=== PATIENT | male | born 1995 | race Caucasian/White ===

== ENCOUNTER 2019-02-01 20:47 | Observation (INO) | payer SELFPAY ==
[2019-02-01 21:55] LABS: BASO % 0.3 % (0.0-2.0); EOS # 0.1 K/uL (0.0-0.7); EOS % 1.1 % (0.0-4.0); HEMOGLOBIN 15.5 g/dL (12.0-18.0); LYMPH # 3.6 K/uL (1.0-4.3); LYMPH % 41.9 % (20.0-40.0); MEAN CELL VOLUME 88.2 fL (80.0-94.0); MEAN CORPUSCULAR HGB CONC 34.1 g/dL (33.0-37.0); MEAN PLATELET VOLUME 7.1 fL (7.2-11.7); MONO # 0.9 K/uL (0.0-0.8); MONO % 10.1 % (0.0-10.0); NEUT % 46.6 % (50.0-75.0); RBC 5.15 Mil/uL (4.40-5.90); RED CELL DISTRIBUTION WIDTH 13.1 % (11.5-14.5); WHITE BLOOD COUNT 8.5 K/uL (4.8-10.8)
[2019-02-01] MEDS ORDERED: Sodium Chloride 0.9% 1,000 ML IV ONE (22:10)
--- NOTE | 2019-02-01 22:10 | C.PDOC ---
History Of Present Illness Patient presents to the ED c/o abdominal pain associated with nausea and vomiting that started at work today. Patient reports some small streaks of blood in his vomit earlier. Patient denies fever, chills, diarrhea, CP, SOB, alcohol intake, weakness, numbness. Time Seen by Provider: 02/01/19 22:02 Chief Complaint (Nursing): Abdominal Pain History Per: Patient History/Exam Limitations: no limitations Onset/Duration Of Symptoms: Hrs Current Symptoms Are (Timing): Still Present Context: Other Severity: Severe Pain Scale Rating Of: 6 Location Of Pain/Discomfort: RLQ, Epigastric Radiation Of Pain To:: None Quality Of Discomfort: Sharp, Stabbing Associated Symptoms: Nausea, Vomiting. denies: Diarrhea, Urinary Symptoms Alleviating Factors: None Last Bowel Movement: Today Recent travel outside of the [place]: No Additional History Per: Patient Past Medical History Reviewed: Historical Data, Nursing Documentation, Vital Signs Vital Signs: Last Vital Signs Temp 98.4 F 02/01/19 20:50 Pulse 67 02/01/19 20:50 Resp 18 02/01/19 20:50 BP 127/81 02/01/19 20:50 Pulse Ox 100 02/01/19 20:50 - Medical History PMH: No Chronic Diseases Surgical History: No Surg Hx Family History: States: Unknown Family Hx - Social History Hx Tobacco Use: No Hx Alcohol Use: No Hx Substance Use: No - Immunization History Hx Tetanus Toxoid Vaccination: No Hx Influenza Vaccination: No Hx Pneumococcal Vaccination: No Review Of Systems Constitutional: Negative for: Fever, Chills Cardiovascular: Negative for: Chest Pain Respiratory: Negative for: Shortness of Breath Gastrointestinal: Positive for: Nausea, Vomiting, Abdominal Pain. Negative for: Constipation Musculoskeletal: Negative for: Back Pain Skin: Negative for: Rash Neurological: Negative for: Weakness, Numbness, Headache Psych: Negative for: Anxiety Physical Exam - Physical Exam Appears: Non-toxic, No Acute Distress Skin: Warm, Dry Head: Normacephalic Eye(s): bilateral: Normal Inspection Oral Mucosa: Moist Neck: Supple Chest: Symmetrical Cardiovascular: Rhythm Regular Respiratory: No Rales, No Rhonchi, No Wheezing Gastrointestinal/Abdominal: Soft, Tenderness (mid epigastric/RLQ), No Distention, No Guarding, No Rebound Back: No CVA Tenderness Male Genital: No Inguinal Tenderness Extremity: Normal ROM Extremity: Bilateral: Atraumatic, Normal Color And Temperature, Normal ROM Pulses: Left Dorsalis Pedis: Normal, Right Dorsalis Pedis: Normal Neurological/Psych: Oriented x3, Normal Speech, Normal Cognition Gait: Steady ED Course And Treatment - Laboratory Results Result Diagrams: 02/01/19 21:51 02/01/19 21:51 O2 Sat by Pulse Oximetry: 100 (ON RA) Pulse Ox Interpretation: Normal - CT Scan/US CT abd/pelvis Other Rad Studies (CT/US): Read By Radiologist, Radiology Report Reviewed CT/US Interpretation: CT of the abdomen and pelvis with contrast. Clinical statement: Pain. Technique: Multiple axial CT images were obtained from the base of the lungs through the floor of the pelvis utilizing 5 mm axial slices after administration of nonionic intravenous contrast. Coronal and sagittal reconstructions were also obtained. Comparison: None. Findings: Chest: The visualized lung bases are clear. Abdomen: The liver, spleen, pancreas, kidneys, gallbladder, and adrenal glands are unremarkable. The aorta is within normal limits. There is no evidence of abdominal lymphadenopathy or ascites. Pelvis: The appendix is significantly dilated with fluid measuring up to 18 mm in diameter. There is an appendicolith in the proximal appendix measuring up to 10 mm with mild surrounding appendiceal wall thickening. No surrounding inflammation is seen. The remainder of the bowel is unremarkable. The urinary bladder is within normal limits. The other pelvic structures appear grossly intact. There is no evidence of pelvic lymphadenopathy or ascites. Bones: There are no suspicious osseous abnormalities seen. Impression: 1. Dilated, slightly thickened appendix containing a proximal appendicolith with mild surrounding appendiceal wall thickening. The findings are suspicious for early acute appendicitis. No surrounding mesenteric inflammation or fluid is seen. There is no evidence of abscess or perforation at this time. 2. The remainder of the bowel is unremarkable. . Electronically signed on Feb 02, 2019 12:40:03 AM EDT by: Eleni Moody M.D., Certified by [facility], MSK, Neuroradiology Progress Note: Plan: - Labs. - Morphine 2 mg IVP. - Protonix 40 mg IVP. - IV fluids. - Zofran 4 mg IVP. - UA Disposition Discussed With : Rahat Becerra Comment: accepted the pt on his servie and took over the care at 12:48 AM Doctor Will See Patient In The: ED Counseled Patient/Family Regarding: Studies Performed, Diagnosis - Disposition Disposition: HOSPITALIZED Disposition Time: 22:10 Condition: FAIR Forms: [facility] (Jordanian) - Clinical Impression Clinical Impression: Abdominal pain, Acute appendicitis - Scribe Statement The provider has reviewed the documentation as recorded by the Scribe Mo Avelar All medical record entries made by the Scribe were at my direction and personally dictated by me. I have reviewed the chart and agree that the record accurately reflects my personal performance of the history, physical exam, medical decision making, and the department course for this patient. I have also personally directed, reviewed, and agree with the discharge instructions and disposition. Decision To Admit - Pt Status Changed To: Hospital Disposition Of: Observation - . Bed Request Type: Regular Admitting Physician: Rahat Becerra Patient Diagnosis: Abdominal pain, Acute appendicitis
[2019-02-01 22:11] LABS: ALB/GLOB RATIO 1.6 (1.0-2.1); ALBUMIN 4.5 g/dL (3.5-5.0); ALT/SGPT 50 U/L (21-72); AST/SGOT 48 U/L (17-59); BLOOD UREA NITROGEN 13 mg/dL (9-20); GFR NON-AFRICAN AMERICAN > 60
[2019-02-01 22:33] LABS: INR 1.1; PROTHROMBIN TIME 12.1 SECONDS (9.7-12.2)
[2019-02-01] MEDS ORDERED: Iodixanol 320 MG/ML 100 ML BOTTLE IV ONE (23:18)
[2019-02-02] MEDS ORDERED: Piperacillin/Tazobact 3.375 gm 100 ML IVPB STA (00:47)
[2019-02-02] MEDS ORDERED: Piperacillin/Tazobact 3.375 gm 100 ML IVPB ONE (00:54)
--- NOTE | 2019-02-02 02:47 | CP.PCM.HP ---
History of Present Illness - History of Present Illness History of Present Illness: General Surgery H&P for Dr. Becerra cc: abdominal pain 23M who denies any significant PMH presents to [facility] for complaint of abdominal pain. Patient was seen and evaluated in the ED. Patient states that pain began earlier in the day yesterday after lunch time. Patient reports pain began superior to periumbilical region the moved to lower abdomen and RLQ. He had two episodes of nausea/vomiting at home with NBNB emesis. He never experienced pain like this before. Nothing specifically aggravates or alleviates his symptoms. Admits to anorexia. Denies fever/chills, cp, SOB, diarrhea, constipation, incontinence, urinary symptoms. PMH: denies PSH: denies ALL: denies FH: denies Social: denies vices Present on Admission - Present on Admission Any Indicators Present on Admission: No History of DVT/PE: No History of Uncontrolled Diabetes: No Urinary Catheter: No Decubitus Ulcer Present: No Review of Systems - Review of Systems All systems: reviewed and no additional remarkable complaints except (as per HPI) Past Patient History - Past Social History Smoking Status: Light Smoker < 10 Cigarettes Daily - PSYCHIATRIC Hx Substance Use: No - SURGICAL HISTORY Hx Surgeries: No - ANESTHESIA Hx Anesthesia: No Meds Allergies/Adverse Reactions: Allergies Allergy/AdvReac Type Severity Reaction Status Date / Time No Known Allergies Allergy Verified 02/01/19 20:53 Physical Exam - Constitutional Appears: No Acute Distress - Head Exam Head Exam: ATRAUMATIC, NORMOCEPHALIC - Eye Exam Eye Exam: EOMI, Normal appearance Pupil Exam: PERRL - ENT Exam ENT Exam: Mucous Membranes Moist - Respiratory Exam Respiratory Exam: NORMAL BREATHING PATTERN - Cardiovascular Exam Cardiovascular Exam: REGULAR RHYTHM - GI/Abdominal Exam GI & Abdominal Exam: Distended (mild), Normal Bowel Sounds, Soft, Tenderness (RLQ/periumbilical). absent: Firm, Guarding, Hernia, Rebound, Rigid Additional comments: +McBurney's,+Rovsing - Rectal Exam Rectal Exam: Deferred - Extremities Exam Extremities exam: Positive for: normal capillary refill, pedal pulses present. Negative for: calf tenderness - Back Exam Back exam: absent: CVA tenderness (L), CVA tenderness (R) - Neurological Exam Neurological exam: Alert, CN II-XII Intact, Oriented x3 - Psychiatric Exam Psychiatric exam: Normal Affect, Normal Mood - Skin Skin Exam: Dry, Intact, Warm Results - Vital Signs Recent Vital Signs: Last Vital Signs Temp 98.8 F 02/02/19 02:23 Pulse 81 02/02/19 02:23 Resp 19 02/02/19 02:23 BP 124/75 02/02/19 02:23 Pulse Ox 98 02/02/19 02:23 - Labs Result Diagrams: 02/01/19 21:51 02/01/19 21:51 Labs: Laboratory Results - last 24 hr 02/01/19 02/01/19 02/01/19 21:51 21:51 22:20 WBC 8.5 RBC 5.15 Hgb 15.5 Hct 45.4 MCV 88.2 MCH 30.0 MCHC 34.1 RDW 13.1 Plt Count 306 MPV 7.1 L Neut % (Auto) 46.6 L Lymph % (Auto) 41.9 H [place] % (Auto) 10.1 H Eos % (Auto) 1.1 Baso % (Auto) 0.3 Neut # (Auto) 4.0 Lymph # (Auto) 3.6 [place] # (Auto) 0.9 H Eos # (Auto) 0.1 Baso # (Auto) 0.0 PT 12.1 INR 1.1 APTT 38 H Sodium 139 Potassium 3.9 Chloride 103 Carbon Dioxide 26 Anion Gap 13 BUN 13 Creatinine 0.9 Est GFR ( Amer) > 60 Est GFR (Non-Af Amer) > 60 Random Glucose 91 Calcium 9.0 Total Bilirubin 0.4 AST 48 ALT 50 Alkaline Phosphatase 81 Total Protein 7.3 Albumin 4.5 Globulin 2.8 Albumin/Globulin Ratio 1.6 Lipase 02/01/19 22:21 WBC RBC Hgb Hct MCV MCH MCHC RDW Plt Count MPV Neut % (Auto) Lymph % (Auto) [place] % (Auto) Eos % (Auto) Baso % (Auto) Neut # (Auto) Lymph # (Auto) [place] # (Auto) Eos # (Auto) Baso # (Auto) PT INR APTT Sodium Potassium Chloride Carbon Dioxide Anion Gap BUN Creatinine Est GFR ( Amer) Est GFR (Non-Af Amer) Random Glucose Calcium Total Bilirubin AST ALT Alkaline Phosphatase Total Protein Albumin Globulin Albumin/Globulin Ratio Lipase 64 Assessment & Plan - Assessment and Plan (Free Text) Assessment: 23M with acute appendicitis Plan: -NPO -IVF -IV abx -Pain control -Anti-emtics PRN -Plan for OR 02/02 -Further recommendations as per Dr. Mariam Phillips PGY2 - Date & Time Date: 02/02/19 Time: 02:50
[2019-02-02] MEDS ORDERED: Lactated Ringer's 500 ML IV ONE (05:53)
[2019-02-02] MEDS ORDERED: Lactated Ringer's 1,000 ML IV ONE (05:55)
[2019-02-02] MEDS ORDERED: Piperacill/Tazo 3.375gm in Dex 3.375 GM/50 ML BAG IVPB SCH (06:00)
[2019-02-02] MEDS: Lactated Ringer's 1,000 ML IV SCH ×3 (07:15→23:14)
[2019-02-02 07:20] LABS: ALB/GLOB RATIO 1.6 (1.0-2.1); ALBUMIN 4.4 g/dL (3.5-5.0); ALT/SGPT 50 U/L (21-72); AST/SGOT 44 U/L (17-59); BLOOD UREA NITROGEN 8 mg/dL (9-20); GFR NON-AFRICAN AMERICAN > 60
[2019-02-02 07:24] LABS: BASO % 0.1 % (0.0-2.0); HEMOGLOBIN 15.8 g/dL (12.0-18.0); LYMPH # 1.3 K/uL (1.0-4.3); LYMPH % 7.2 % (20.0-40.0); MEAN CELL VOLUME 88.6 fL (80.0-94.0); MEAN CORPUSCULAR HEMOGLOBIN 30.4 pg (27.0-31.0); MEAN CORPUSCULAR HGB CONC 34.3 g/dL (33.0-37.0); MEAN PLATELET VOLUME 7.1 fL (7.2-11.7); MONO # 1.3 K/uL (0.0-0.8); MONO % 7.1 % (0.0-10.0); NEUT # 15.3 K/uL (1.8-7.0); NEUT % 85.6 % (50.0-75.0); PLATELET COUNT 312 K/uL (130-400); RBC 5.22 Mil/uL (4.40-5.90); RED CELL DISTRIBUTION WIDTH 13.2 % (11.5-14.5)
[2019-02-02 07:26] LABS: WHITE BLOOD COUNT 17.9 K/uL (4.8-10.8)
[2019-02-02 08:00] LABS: INR 1.2; PROTHROMBIN TIME 13.4 SECONDS (9.7-12.2)
[2019-02-02 08:19] LABS: BANDS 4 % (0-2); LYMPHOCYTE 6 % (20-40); MONOCYTE 6 % (0-10); NEUTROPHIL 83 % (50-75); REACTIVE LYMPHOCYTES 1 % (0-0); TOTAL CELLS COUNTED 100
[2019-02-02 08:20] LABS: PLATELET ESTIMATE NORMAL (NORMAL)
[2019-02-02] MEDS ORDERED: Bupivacaine-Epi 0.5%-1:200,000 PF Inj ONE (09:11)
[2019-02-02] MEDS ORDERED: Lidocaine Hydrochloride 5 ML INJ ONE (10:19)
[2019-02-02] MEDS ORDERED: Rocuronium 10 mg/ml (5 ml) ONE (10:19)
[2019-02-02] MEDS ORDERED: Midazolam 2 MG/2 ML VIAL ONE (10:19)
[2019-02-02] MEDS ORDERED: Succinylcholine Chloride 20 mg/ml Syr (5 ml) IV ONE (10:19)
[2019-02-02] MEDS ORDERED: Propofol 10 mg/ml Inj (20 ML) ONE (10:19)
[2019-02-02] MEDS ORDERED: Neostigmine 1:1000 (1 mg/ml) Inj ONE (10:59)
--- NOTE | 2019-02-02 11:12 | CT ---
CT abdomen and pelvis HISTORY: Right lower quadrant abdominal pain. COMPARISON: None available. TECHNIQUE: Multiple contiguous axial images were performed through the abdomen and pelvis with the use of intravenous contrast. Subsequently, sagittal and coronal reformatted images were obtained. This CT exam was performed using one or more of the following dose reduction techniques: Automated exposure control, adjustment of the mA and/or kV according to patient size, and/or use of iterative reconstruction technique. Findings: Mild atelectasis at the lung bases. 3 millimeter nodular density at the right lung base. No pleural or pericardial effusion. Liver and gallbladder are preserved. Spleen is preserved. Adrenal glands are preserved. Pancreas is preserved. Distended stomach. Right kidney: No calculi or hydronephrosis. Left Kidney: No calculi or hydronephrosis. Urinary bladder is preserved. Fecal retention in the colon. Marked thickening of a fluid-filled appendix measuring up to 1.6 centimeters with prominent appendicolith at the proximal to mid appendix measuring up to 9 millimeters concerning for acute appendicitis. Few shotty para-aortic and inguinal lymph nodes. Osseous structures are grossly preserved. Impression: Findings concerning for acute appendicitis with associated appendicolith as well as a fluid-filled and distended appendix. Clinical correlation. Additional findings as above. A preliminary report was generated at 12:40 a.m. on 02/02/[address] Eleni Moody from [facility].
[2019-02-02] MEDS ORDERED: HYDROmorphone 0.5 mg/0.5 ml ISec IVP PRN (11:24)
--- NOTE | 2019-02-02 11:32 | PCM.SURG1 ---
Surgeon's Initial Post Op Note - Surgeon's Notes Surgeon: Dr. Becerra Front Office Associate: Jaclyn Erazo, PGY 1 Type of Anesthesia: General Endo Pre-Operative Diagnosis: acute appendicitis Operative Findings: acute appendicitis, fecolith Post-Operative Diagnosis: acute appendicitis Operation Performed: laparoscopic appendectomy Specimen/Specimens Removed: appendix Estimated Blood Loss: EBL {In ML}: 5 Blood Products Given: N/A Drains Used: No Drains Post-Op Condition: Good Date of Surgery/Procedure: 02/02/19 Time of Surgery/Procedure: 09:30
[2019-02-02] MEDS: Piperacill/Tazo 3.375gm in Dex 3.375 GM/50 ML BAG IVPB SCH ×2 (14:27→20:25)
[2019-02-03] MEDS: Piperacill/Tazo 3.375gm in Dex 3.375 GM/50 ML BAG IVPB SCH ×2 (03:31→10:07)
[2019-02-03 03:51] VITALS: TEMP 98.7
[2019-02-03 08:27] VITALS: BP 100/56; PULSE 73; RESP 18; O2SAT 98
--- NOTE | 2019-02-03 09:58 | CP.PCM.DIS ---
Provider - Provider Date of Admission: 02/02/19 00:47 Attending physician: Rahat Becerra MD Time Spent in preparation of Discharge (in minutes): 45 Hospital Course - Lab Results Lab Results: Most Recent Lab Values WBC 17.9 K/uL (4.8-10.8) H D 02/02/19 06:49 RBC 5.22 Mil/uL (4.40-5.90) 02/02/19 06:49 Hgb 15.8 g/dL (12.0-18.0) 02/02/19 06:49 Hct 46.2 % (35.0-51.0) 02/02/19 06:49 MCV 88.6 fL (80.0-94.0) 02/02/19 06:49 MCH 30.4 pg (27.0-31.0) 02/02/19 06:49 MCHC 34.3 g/dL (33.0-37.0) 02/02/19 06:49 RDW 13.2 % (11.5-14.5) 02/02/19 06:49 Plt Count 312 K/uL (130-400) 02/02/19 06:49 MPV 7.1 fL (7.2-11.7) L 02/02/19 06:49 Neut % (Auto) 85.6 % (50.0-75.0) H 02/02/19 06:49 Lymph % (Auto) 7.2 % (20.0-40.0) L 02/02/19 06:49 [place] % (Auto) 7.1 % (0.0-10.0) 02/02/19 06:49 Eos % (Auto) 0.0 % (0.0-4.0) 02/02/19 06:49 Baso % (Auto) 0.1 % (0.0-2.0) 02/02/19 06:49 Neut # (Auto) 15.3 K/uL (1.8-7.0) H 02/02/19 06:49 Lymph # (Auto) 1.3 K/uL (1.0-4.3) 02/02/19 06:49 [place] # (Auto) 1.3 K/uL (0.0-0.8) H 02/02/19 06:49 Eos # (Auto) 0.0 K/uL (0.0-0.7) 02/02/19 06:49 Baso # (Auto) 0.0 K/uL (0.0-0.2) 02/02/19 06:49 Neutrophils % (Manual) 83 % (50-75) H 02/02/19 06:49 Band Neutrophils % 4 % (0-2) H 02/02/19 06:49 Lymphocytes % (Manual) 6 % (20-40) L 02/02/19 06:49 Reactive Lymphs % 1 % (0-0) H 02/02/19 06:49 Monocytes % (Manual) 6 % (0-10) 02/02/19 06:49 Platelet Estimate Normal (NORMAL) 02/02/19 06:49 RBC Morphology Normal 02/02/19 06:49 PT 13.4 SECONDS (9.7-12.2) H 02/02/19 06:49 INR 1.2 02/02/19 06:49 APTT 36 SECONDS (21-34) H 02/02/19 06:49 Sodium 137 mmol/L (132-148) 02/02/19 06:49 Potassium 3.7 mmol/L (3.6-5.2) 02/02/19 06:49 Chloride 101 mmol/L (98-107) 02/02/19 06:49 Carbon Dioxide 27 mmol/L (22-30) 02/02/19 06:49 Anion Gap 13 (10-20) 02/02/19 06:49 BUN 8 mg/dL (9-20) L 02/02/19 06:49 Creatinine 0.9 mg/dL (0.8-1.5) 02/02/19 06:49 Est GFR ( Amer) > 60 02/02/19 06:49 Est GFR (Non-Af Amer) > 60 02/02/19 06:49 Random Glucose 124 mg/dL (75-110) H D 02/02/19 06:49 Calcium 9.0 mg/dl (8.6-10.4) 02/02/19 06:49 Phosphorus 2.9 mg/dL (2.5-4.5) 02/02/19 06:49 Magnesium 1.8 mg/dL (1.6-2.3) 02/02/19 06:49 Total Bilirubin 0.7 mg/dL (0.2-1.3) 02/02/19 06:49 AST 44 U/L (17-59) 02/02/19 06:49 ALT 50 U/L (21-72) 02/02/19 06:49 Alkaline Phosphatase 96 U/L (38-126) 02/02/19 06:49 Total Protein 7.1 g/dL (6.3-8.3) 02/02/19 06:49 Albumin 4.4 g/dL (3.5-5.0) 02/02/19 06:49 Globulin 2.7 gm/dL (2.2-3.9) 02/02/19 06:49 Albumin/Globulin Ratio 1.6 (1.0-2.1) 02/02/19 06:49 Lipase 64 U/L (23-300) 02/01/19 22:21 Blood Type O POSITIVE 02/02/19 06:49 Antibody Screen Negative 02/02/19 06:49 - Hospital Course Hospital Course: 23 M with no PMH presented to [facility] for RLQ abdominal pain and associated n/v. CT scan revealed acute appendicitis. Patient was taken to the OR for Laparoscopic appendectomy. No complications, postoperative course uncomplicated. patient was able to void, tolerate regular diet and ambulate without difficulty at the time of discharge. - Date & Time of H&P Date of H&P: 02/03/19 Time of H&P: 09:57 Discharge Exam - Head Exam Head Exam: ATRAUMATIC, NORMOCEPHALIC - Eye Exam Eye Exam: EOMI - Respiratory Exam Respiratory Exam: NORMAL BREATHING PATTERN - Cardiovascular Exam Cardiovascular Exam: REGULAR RHYTHM - GI/Abdominal Exam GI & Abdominal Exam: Soft. absent: Distended, Guarding, Rebound, Tenderness Additional comments: incisions CDI with dermabond in place - Neurological Exam Neurological exam: Alert, Oriented x3 - Psychiatric Exam Psychiatric exam: Normal Affect, Normal Mood - Skin Skin Exam: Dry, Intact, Normal Color, Warm Discharge Plan - Follow Up Plan Condition: FAIR Disposition: HOME/ ROUTINE Instructions: Appendectomy, Laparoscopic Surgery (DC) Additional Instructions: please follow up with Dr. Becerra in his office within 1 week. you will need to call to make an appointment. please do not swim soak in a bath or hot tub for 2 weeks following surgery. you have absorbable stitches and skin glue, nothin needs to be removed the glue will come off on its own. You may have a regular diet. Please return to the nearest ER if you begin to have new concerning symptoms. Referrals: Rahat Becerra MD [Staff Provider] -
[2019-02-03] MEDS: Lactated Ringer's 1,000 ML IV SCH (10:07)
--- NOTE | 2019-02-08 06:09 | OP ---
PROCEDURE DATE: 02/02/2019 PREOPERATIVE DIAGNOSIS: Acute appendicitis. POSTOPERATIVE DIAGNOSIS: Acute appendicitis. PROCEDURE PERFORMED: Laparoscopic appendectomy. FINDINGS: There is tremendous dilatation and inflammation involving the appendix. There is no gross perforation noted. There is no fluid in the abdominal cavity. There is a small amount of fibrinous exudate noted around the right lower quadrant. DESCRIPTION OF PROCEDURE: Under general anesthesia, the patient was prepared and draped in the sterile fashion. CO2 was insufflated through a Veress needle inserted in the umbilical area. A 12-mm trocar was inserted in the umbilicus, a 5 mm in the suprapubic area and 5-mm trocar on the left lower quadrant. The cannula was placed on the suprapubic port. The patient was placed in a Trendelenburg position and was turned over towards the left side. The appendix was identified. The mesoappendix was secured with the LigaSure and the base of the appendix transected with the aid of the AutoSuture model Endo JENNA. The appendix with the mesentery was then placed in an EndoCatch and was extracted through the umbilical port. No bleeding was noted. The area was irrigated with a large amount of saline solution. Irrigating fluids were suctioned out. CO2 was allowed to escape from the peritoneal cavity, the trocars removed and the wound closed in a routine fashion. The estimated blood loss was about 10 mL. No apparent complications. Rahat Becerra MD
== END 2019-02-03 12:53 | disposition home or self-care (01) ==
LOC: C.ER 20:47 → C.6T 02-02 00:47
PROVIDERS: ADMIT Surgery; ATTEND Surgery
DX: K35.80 Unspecified acute appendicitis (principal); F17.210 Nicotine dependence, cigarettes, uncomplicated
CPT/HCPCS: 36415; 44970; 74177; 80053; 83690; 83735; 84100; 85025; 85610; 85730; 86850; 86900; 88304; 96361; 96365; 96366; 96375; 96376; 99285; C9113; G0378; J1885; J2250; J2270; J2405; J2543; J2704; J2710; J3010; J7030; J7120; Q9967